=== PATIENT | male | born 2005 | race Caucasian/White ===

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

== ENCOUNTER 2025-06-09 13:06 | Emergency (ER) | payer OTHER | END 2025-06-09 13:42 | disposition home or self-care (01) | LOC: BURERS 13:06 | DX: H66.93 Otitis media, unspecified, bilateral (principal); J20.9 Acute bronchitis, unspecified; J02.9 Acute pharyngitis, unspecified | CPT/HCPCS: 99283 ==